=== PATIENT | male | born 1940 | race Caucasian/White ===

== ENCOUNTER 2017-03-03 13:31 | Inpatient (IN) | payer OTHER ==
[~2017-03-03] VITALS: Ht 167.6 cm; Wt 77.1 kg
[2017-03-03] VITALS (7 sets, daily range): BP systolic 100–131
[~2017-03-03 13:31] MED LIST: ATEN50TA PO; FOLI-43 PO; LISI-600 PO; PRAV40TA PO; TRIA1CAP53 PO
--- NOTE | 2017-03-03 14:15 | NUR ---
Pt was brought to bed 4 and report was endorsed by Natividad
--- NOTE | 2017-03-03 14:32 | NUR ---
Pt complains of weakness with low bp for the past 2 weeks, had a doctors appt today and it was 75/51 and the doctor told him to go home and call 911. ALS brought in the pt and his bp increased to 103/56 with a 500ml NS bag. Pt denies chest pain, has some difficulty while talking, some SOB but o2 sat is 95% on room air. No other injuries/complaints per pt or noted.
--- NOTE | 2017-03-03 14:36 | NUR ---
ER at bedside examining patient.
[2017-03-03 14:57] LABS: BASOPHILS # (AUTO) 0.1 K/uL (0.0-0.2); EOSINOPHILS # (AUTO) 0.1 K/uL (0.0-0.4); HEMATOCRIT 25.5 % (36-54); LYMPHOCYTES # (AUTO) 1.3 K/uL (1.0-5.5); MEAN CORPUSCULAR HEMOGLOBIN 33 pg (27-31)
--- NOTE | 2017-03-03 15:00 | NUR ---
Pt is resting in bed comfortably with no noted distress or discomfort.
[2017-03-03 15:01] LABS: BASOPHILS % (AUTO) 0.6 % (0.0-2.0); EOSINOPHILS % (AUTO) 0.5 % (0.0-4.0); HEMOGLOBIN 8.6 g/dL (14.0-18.0); LYMPHOCYTES % (AUTO) 11.6 % (20.5-51.5); MEAN CORPUSCULAR HGB CONC 34 % (32-36); MEAN CORPUSCULAR VOLUME 99 fL (79.0-98.0); MONOCYTES # (AUTO) 0.7 K/uL (0.0-1.0); MONOCYTES % (AUTO) 6.5 % (1.7-9.3); NEUTROPHILS # (AUTO) 8.9 K/uL (1.8-7.7); NEUTROPHILS % (AUTO) 80.8 % (40.0-70.0); PLATELET COUNT (AUTO) 241 K/uL (130-430); RED BLOOD CELL COUNT(AUTO) 2.58 MIL/uL (4.2-6.2); RED CELL DISTRIBUTION WIDTH 15.6 % (9.0-15.0); WHITE BLOOD COUNT (AUTO) 11.1 K/uL (4.8-10.8)
[2017-03-03 15:12] LABS: ANION GAP 8 (5-15); CALCIUM 8.4 mg/dL (8.4-11.0); CHLORIDE 104 mmol/L (98-107); CREATININE 2.33 mg/dL (0.55-1.30); GLUCOSE 148 mg/dL (70-99); POTASSIUM 3.8 mmol/L (3.5-5.1); SODIUM SERUM 138 mmol/L (136-145); UREA NITROGEN, BLOOD 55 mg/dL (8-21)
[2017-03-03 15:20] LABS: ALANINE AMINOTRANSFERASE 17 U/L (12-78); ALBUMIN 2.8 g/dL (3.4-4.8); ASPARTATE AMINOTRANSFERASE 13 U/L (10-37); TOTAL BILIRUBIN 0.2 mg/dL (0.0-1.0); TOTAL PROTEIN, SERUM 6.2 g/dL (6.4-8.3)
[2017-03-03] MEDS ORDERED: NACL 0.9% 1,000 ML IV SCH (15:32)
--- NOTE | 2017-03-03 15:45 | NUR ---
Pt was taken to x ray in stable condition
--- NOTE | 2017-03-03 15:51 | NUR ---
Pt returned from CT in stable condition
--- NOTE | 2017-03-03 16:45 | NUR ---
ER at bedside examining patient.
[2017-03-03 16:48] LABS: BILIRUBIN,URINE NEGATIVE (NEGATIVE); BLOOD, URINE NEGATIVE (NEGATIVE); CLARITY/URINE CLEAR (CLEAR); COLOR,URINE YELLOW (YELLOW); GLUCOSE,URINE NEGATIVE (NEGATIVE); KETONES,URINE NEGATIVE (NEGATIVE); LEUKOCYTE ESTERASE ,URINE NEGATIVE (NEGATIVE); NITRITE, URINE NEGATIVE (NEGATIVE); PROTEIN URINE NEGATIVE (NEGATIVE); UROBILINOGEN,URINE 0.2 (0.2-1.0)
[2017-03-03] MEDS ORDERED: NACL 0.9% 1,000 ML IV ONE (17:15)
--- NOTE | 2017-03-03 17:15 | NUR ---
Telemetry strip printed, interpreted as SINUS RHYTHM at 70 bpm, and placed on the chart.
[2017-03-03 17:16] LABS: BACTERIA,URINE FEW /HPF (None Seen); MUCUS,URINE 1+ /LPF (None Seen); RBC,URINE 0-3 /HPF (0-3); WBC,URINE 0-3 /HPF (0-3)
--- NOTE | 2017-03-03 17:48 | NUR ---
Patient will be admitted to care of Dr Matute. Admitted to ICU unit. Will go to bed 2. Belongings list completed. Summary report printed. Report will be given at bedside.
--- NOTE | 2017-03-03 17:56 | NUR ---
Admission assessment Received Pt in ICU bed 2 via gurney. Pt awake, alert, orientated x4. Pt breathing even and unlabored. O2 sat @ 95 % room air. Pt c/o nausea and loose bloody stool when Pt was in ER. No s/s of active bleeding noted. Lung sounds auscultated, lungs sounds clear throughout all lobes. Abd ausculated, bowel sounds noted throughout all quadrant. Abd soft and non distended. IV access noted left FA 18G, patent with blood return. NS bolus currently infusing. Assessment done, plan of care discussed with Pt, call light within easy reach, bed at lowest position, will continue to monitor.
[2017-03-03] MEDS ORDERED: ACETAMINOPHEN 325 MG TABLET PO PRN (19:45)
--- NOTE | 2017-03-03 19:47 | NUR ---
Closing noted. Pt awake. Pt breathing even and unlabored. Pt stated he does not need anything at the moment. Informed Pt to push the call light if Pt needs assistance with anything. Pt verbalized understanding, Call light within easy reach, bed at lowest position, all care endorse to oncoming RN.
--- NOTE | 2017-03-03 20:00 | NUR ---
AAOX4. IN NO APPARENT DISTRESS. VSS. DENIES PAIN. PERRLA. HAND REINFORCING STEEL WORKER GOOD. BREATH SOUNDS CLEAR. ON ROOM AIR. POX 99%. BOWEL SOUNDS +. PULSES PALPABLE. SKIN W/D. COLOR SATISFACTORY. HOB UP TO COMFORT. SIDE RAILS UP X2. CALL LIGHTS WITHIN REACH. DR ESTRELLA CAME IN TO SEE PT EARLIER. NEW ORDERS GIVEN AND CARRIED OUT. DR ESTRELLA TALKED TO DR MCFADDEN. DR MCFADDEN WITH NEW ORDERS, IMPLEMENTED. CONSENT SIGNED FOR BLOOD TRANSFUSION AND ESOPHAGOGASTRODUODENOSCOPY.
[2017-03-03] MEDS: D5NS 1,000 ML IV SCH (20:07)
[2017-03-03] MEDS: PANTOPRAZOLE SODIUM 40 MG/VIAL (PROTONIX) IVP SCH (20:17)
--- NOTE | 2017-03-03 21:00 | NUR ---
STOOD UP TO VOID 300CC CLEAR MANOJ URINE VIA URINAL.
--- NOTE | 2017-03-03 21:20 | NUR ---
1 UNIT [facility] #[id number] [place]OGERS. NO ADVERSE REACTIONS.
[2017-03-03] MEDS: ZOLPIDEM TARTRATE 5 MG TABLET PO PRN (21:39)
--- NOTE | 2017-03-03 21:40 | NUR ---
AMBIEN 5 MG PO GIVEN FOR SLEEP PER PT REQUEST.
--- NOTE | 2017-03-03 23:00 | NUR ---
ORDERED CBC POSTPONED BECAUSE BLOOD IS STILL INFUSING.
--- NOTE | 2017-03-03 23:30 | NUR ---
PRBC ALL INFUSED.
[2017-03-04] VITALS (24 sets, daily range): BP systolic 89–150
--- NOTE | 2017-03-04 | NUR ---
DOZES ON AND OFF. 0 DISTRESS. NO SOB. TURNS SELF WELL. LOOKS COMFORTABLE.
--- NOTE | 2017-03-04 00:30 | NUR ---
CBC DRAWN PER ORDER.
[2017-03-04 00:33] LABS: BASOPHILS % (AUTO) 0.4 % (0.0-2.0); EOSINOPHILS # (AUTO) 0.2 K/uL (0.0-0.4); EOSINOPHILS % (AUTO) 2.5 % (0.0-4.0); HEMATOCRIT 28.1 % (36-54); HEMOGLOBIN 9.6 g/dL (14.0-18.0); LYMPHOCYTES # (AUTO) 2.1 K/uL (1.0-5.5); LYMPHOCYTES % (AUTO) 23.3 % (20.5-51.5); MEAN CORPUSCULAR HEMOGLOBIN 33 pg (27-31); MEAN CORPUSCULAR HGB CONC 34 % (32-36); MEAN CORPUSCULAR VOLUME 95 fL (79.0-98.0); MONOCYTES # (AUTO) 0.6 K/uL (0.0-1.0); MONOCYTES % (AUTO) 6.5 % (1.7-9.3); NEUTROPHILS # (AUTO) 6.1 K/uL (1.8-7.7); NEUTROPHILS % (AUTO) 67.3 % (40.0-70.0); PLATELET COUNT (AUTO) 220 K/uL (130-430); RED BLOOD CELL COUNT(AUTO) 2.95 MIL/uL (4.2-6.2); RED CELL DISTRIBUTION WIDTH 15.7 % (9.0-15.0)
--- NOTE | 2017-03-04 01:00 | NUR ---
SINUS DINA AT TIMES, ASYMPTOMATIC.
--- NOTE | 2017-03-04 02:00 | NUR ---
SOUNDLY ASLEEP. NO DISTRESS NOTED.
--- NOTE | 2017-03-04 04:00 | NUR ---
SLEPT FOR LONG PERIODS OF TIME. STATES HE FEELS MUCH BETTER THAN HOW HE FELT YESTERDAY. VOIDED 400CC CLEAR MANOJ URINE VIA URINAL.
--- NOTE | 2017-03-04 05:00 | NUR ---
NASAL SWAB FOR MRSA SENT TO LAB.
--- NOTE | 2017-03-04 06:00 | NUR ---
SLEPT INTERMITTENTLY. NO DISTRESS, SOB, PAIN NOTED. REPOSITIONS SELF WELL. NO COMPLAINTS OFFERED AT THIS TIME. SINUS DINA AT TIMES. REMAINS IN GUARDED BUT STABLE CONDITION. RESTFUL AND UNEVENTFUL NOC.
[2017-03-04 07:01] LABS: ALANINE AMINOTRANSFERASE 16 U/L (12-78); ALBUMIN 2.7 g/dL (3.4-4.8); ANION GAP 3 (5-15); ASPARTATE AMINOTRANSFERASE 14 U/L (10-37); CHLORIDE 110 mmol/L (98-107); GLUCOSE 108 mg/dL (70-99); POTASSIUM 4.3 mmol/L (3.5-5.1); SODIUM SERUM 140 mmol/L (136-145); TOTAL BILIRUBIN 0.4 mg/dL (0.0-1.0); UREA NITROGEN, BLOOD 40 mg/dL (8-21)
[2017-03-04 07:07] LABS: BASOPHILS % (AUTO) 0.4 % (0.0-2.0); EOSINOPHILS # (AUTO) 0.2 K/uL (0.0-0.4); EOSINOPHILS % (AUTO) 2.9 % (0.0-4.0); HEMATOCRIT 28.6 % (36-54); HEMOGLOBIN 9.7 g/dL (14.0-18.0); LYMPHOCYTES # (AUTO) 1.5 K/uL (1.0-5.5); LYMPHOCYTES % (AUTO) 20.2 % (20.5-51.5); MEAN CORPUSCULAR HEMOGLOBIN 33 pg (27-31); MEAN CORPUSCULAR HGB CONC 34 % (32-36); MEAN CORPUSCULAR VOLUME 97 fL (79.0-98.0); MONOCYTES # (AUTO) 0.5 K/uL (0.0-1.0); MONOCYTES % (AUTO) 6.8 % (1.7-9.3); NEUTROPHILS # (AUTO) 5.1 K/uL (1.8-7.7); NEUTROPHILS % (AUTO) 69.7 % (40.0-70.0); PLATELET COUNT (AUTO) 222 K/uL (130-430); RED BLOOD CELL COUNT(AUTO) 2.95 MIL/uL (4.2-6.2); RED CELL DISTRIBUTION WIDTH 15.7 % (9.0-15.0); WHITE BLOOD COUNT (AUTO) 7.3 K/uL (4.8-10.8)
--- NOTE | 2017-03-04 07:35 | NUR ---
AM Shift Assessment Pt AAOx4, states no distress at this time, able to verbalize needs. Respirations even and unlabored on RA. Skin warm and dry. IV 18G LFA intact, patent with D5 NS 100 ml/hr. Pt states no pain currently 0/10. Heart sounds regular, sinus bradycardia on monitor, asymptomatic, HR 55. Lung sounds clear bilaterally. Bowel sounds present, abdomen soft and nontender. Pt states he has not had BM since last night. Pt voids via urinal. SCDs in place bilaterally. Bed in lowest position. Call light in reach. Will continue to monitor.
--- NOTE | 2017-03-04 09:00 | NUR ---
Dr. Matute in to see pt.
--- NOTE | 2017-03-04 10:00 | NUR ---
Dr. Jeff called unit regarding pt and states, "I will see him later today. Keep pt NPO for now."
[2017-03-04] MEDS: PANTOPRAZOLE SODIUM 40 MG/VIAL (PROTONIX) IVP SCH ×2 (10:01→20:52)
[2017-03-04] MEDS: D5NS 1,000 ML IV SCH ×2 (10:05→20:46)
[2017-03-04 10:41] LABS: INR 0.9 (0.80-1.20); PROTHROMBIN TIME 9.9 SECS (9.5-12.5)
--- NOTE | 2017-03-04 15:40 | NUR ---
Patient Round/Hygiene/GI Pt states no pain 0/10, no distress at this time. Administered CHG bath with minimal assist. Dr. Longoria called unit and states he "will continue with EGD procedure." GI lab Karissa EDEN and rich eSals at bedside with patient. Consent signed for procedure and placed in chart.
--- NOTE | 2017-03-04 15:58 | NUR ---
Dr. Longoria at bedside with pt. Addendum: 03/04/17 at 1613 by Ghislaine Schmidt RN EGD procedure done at bedside by Dr. Jeff.
[2017-03-04] MEDS: fentaNYL CITRATE/PF 100 MCG/2 ML AMP ONE ×2 (16:07→16:09)
[2017-03-04] MEDS: MIDAZOLAM HCL 5 MG/5 ML VIAL ONE ×3 (16:07→16:11)
--- NOTE | 2017-03-04 19:30 | NUR ---
PM SHIFT ASSESSMENT Received report from AM shift RN. Pt is awake in bed watching TV, Alert and oriented x4. Respirations even and unlabored, no acute distress noted at this time. Lung sounds clear bilaterally. IV in left forearm patent and intact. Bowel sounds present. Pt voids with using urinal. SCD in place. Bed in lowest position, call light within reach, and safety precautions observed. Will continue to monitor Pt.
[2017-03-05] VITALS (17 sets, daily range): BP systolic 90–153
--- NOTE | 2017-03-05 | NUR ---
NOTE Pt is sleeping soundly, no acute distress noted at this time. Will continue to monitor.
--- NOTE | 2017-03-05 | NUR ---
NOTE Pt is sleeping soundly, no acute distress at this time. Heart rate at 60 to 70.
--- NOTE | 2017-03-05 03:00 | NUR ---
NOTE Assisted Pt to use the urinal. Has 200ml clear yellow urine.
--- NOTE | 2017-03-05 05:50 | NUR ---
BOWEL MOVEMENT Pt had a green formed stool. No blood noted. Will continue to monitor.
[2017-03-05] MEDS: D5NS 1,000 ML IV SCH (06:05)
--- NOTE | 2017-03-05 07:21 | NUR ---
TRANSFER OF CARE Gave report to AM shift RN via SBAR.
--- NOTE | 2017-03-05 07:30 | NUR ---
AM Assessment Pt AAOx4, able to verbalize needs. Pt states no pain or distress at this time. Skin warm and dry. IV 18G LFA intact, patent with D5 NS 100 ml/hr, no infiltration noted. Heart sounds regular, sinus bradycardia on monitor, HR 55 asymptomatic. Lung sounds clear bilaterally. Bowel sounds present, abdomen soft and nontender. Bed in lowest position. SCDs in place. Will continue to monitor.
--- NOTE | 2017-03-05 07:42 | NUR ---
Nutrition Update Papito Scale 18 noted. Pt admitted for Gastrointestinal bleed. Diet: Full liquid diet. BMI: 27.4 kg/m2 RD to follow per nutrition care standards.
--- NOTE | 2017-03-05 09:00 | NUR ---
Dr. Matute at bedside with patient.
[2017-03-05] MEDS: PANTOPRAZOLE SODIUM 40 MG/VIAL (PROTONIX) IVP SCH ×2 (09:32→20:23)
--- NOTE | 2017-03-05 09:40 | NUR ---
Dr. Jeff at bedside with patient.
[2017-03-05 09:46] LABS: ANION GAP 5 (5-15); CALCIUM 7.9 mg/dL (8.4-11.0); CHLORIDE 110 mmol/L (98-107); CREATININE 1.23 mg/dL (0.55-1.30); GLUCOSE 180 mg/dL (70-99); SODIUM SERUM 140 mmol/L (136-145); UREA NITROGEN, BLOOD 19 mg/dL (8-21)
[2017-03-05 09:47] LABS: BASOPHILS % (AUTO) 0.2 % (0.0-2.0); EOSINOPHILS # (AUTO) 0.3 K/uL (0.0-0.4); EOSINOPHILS % (AUTO) 3.7 % (0.0-4.0); HEMATOCRIT 29.9 % (36-54); HEMOGLOBIN 9.8 g/dL (14.0-18.0); LYMPHOCYTES # (AUTO) 1.2 K/uL (1.0-5.5); LYMPHOCYTES % (AUTO) 16.4 % (20.5-51.5); MEAN CORPUSCULAR HEMOGLOBIN 32 pg (27-31); MEAN CORPUSCULAR HGB CONC 33 % (32-36); MEAN CORPUSCULAR VOLUME 98 fL (79.0-98.0); MONOCYTES # (AUTO) 0.3 K/uL (0.0-1.0); MONOCYTES % (AUTO) 3.9 % (1.7-9.3); NEUTROPHILS # (AUTO) 5.2 K/uL (1.8-7.7); NEUTROPHILS % (AUTO) 75.8 % (40.0-70.0); PLATELET COUNT (AUTO) 250 K/uL (130-430); RED BLOOD CELL COUNT(AUTO) 3.06 MIL/uL (4.2-6.2); RED CELL DISTRIBUTION WIDTH 15.2 % (9.0-15.0)
[2017-03-05 09:51] LABS: ALANINE AMINOTRANSFERASE 15 U/L (12-78); ALBUMIN 2.4 g/dL (3.4-4.8); ASPARTATE AMINOTRANSFERASE 14 U/L (10-37); TOTAL BILIRUBIN 0.2 mg/dL (0.0-1.0); TOTAL PROTEIN, SERUM 5.7 g/dL (6.4-8.3)
--- NOTE | 2017-03-05 12:00 | NUR ---
Patient Round/Hygiene Pt states no acute distress or pain at this time. Pt able to perform self care with CHG wipes. Linens changed. Bed in lowest position. SCDs in place. Call light in reach. Will continue to monitor.
--- NOTE | 2017-03-05 14:20 | NUR ---
ASSUMPTION OF CARE PT TRANSFERRED TO TELEMETRY. FULL ASSESSMENT COMPLETED. VSS. PT ORIENTED TO UNIT, ROOM, BED, STAFF. RD OF CALL LIGHT NOTED.
--- NOTE | 2017-03-05 14:20 | NUR ---
Transfer to Telemetry Endorsed plan of care to Mehnaz EDEN via SBAR. Pt states no pain, no discomfort, no distress at this time. IV SL 18G on LFA intact, patent, no signs of infiltration noted. Pt transfer to room 133B in tele via wheelchair. Pt ambulates to bed and wheelchair with steady gait. Addendum: 03/05/17 at 1622 by Ghislaine Schmidt RN All belongings recorded and sent with patient.
--- NOTE | 2017-03-05 18:48 | NUR ---
CLOSING NOTE PT RESTING IN BED. ALL NEEDS MET. HOURLY ROUNDS OBSERVED THROUGHOUT SHIFT. WILL ENDORSE REPORT TO NOC SHIFT NURSE.
--- NOTE | 2017-03-05 20:00 | NUR ---
INITIAL NOTES: PT IS AWAKE,AND ORIENTED . VITALS ARE STABLE . NOT IN ANY ACUTE DISTRESS AT THIS TIME . ASSESSMENT DONE .BED IN LOW AND LOCK POSITION , CALL ADDISON IN REACH ; ENCOURAGED PT TO CALL FOR ANY ASSISTANCE , WILL CONTINUE TO MONITOR.
--- NOTE | 2017-03-05 20:22 | NUR ---
RN NOTES: PT IS ASKING FOR SLEEPING PILL , PT STATED I WILL TAKE IT NOW AND WILL SLEEP . WILL GIVE MEDICATION
[2017-03-05] MEDS: ZOLPIDEM TARTRATE 5 MG TABLET PO PRN (20:23)
--- NOTE | 2017-03-05 22:05 | NUR ---
RN ROUNDS: PT IS SLEEPING COMFORTABLY ; NOT IN ANY ACUTE DISTRESS; WILL CONTINUE TO MONITOR.
--- NOTE | 2017-03-06 00:30 | NUR ---
RN ROUNDS: PT APPEARS TO BE SLEEPING , NOT IN ANY ACUTE DISTRESS; WILL CONTINUE TO MONITOR.
[2017-03-06 00:32] VITALS: BP_SYST 99
--- NOTE | 2017-03-06 02:47 | NUR ---
RN ROUNDS: PT IS SLEEPING , NOT IN ANY ACUTE DISTRESS; WILL CONTINUE TO MONITOR.;
[2017-03-06 04:17] VITALS: BP_SYST 106
--- NOTE | 2017-03-06 04:18 | NUR ---
RN ROUNDS: PT APPEARS TO BE SLEEPING COMFORTABLY , NOT IN ANY ACUTE DISTRESS; WILL CONTINUE TO MONITOR.;
--- NOTE | 2017-03-06 06:38 | NUR ---
CLOSING NOTES: PT IS SLEEPING COMFORTABLY, NOT IN ANY ACUTE DISTRESS; EASILY AROUSABLE ;NO BM LAST NIGHT . WILL CONTINUE TO MONITOR AND WILL ENDORSE TO NEXT SHIFT NURSE .
--- NOTE | 2017-03-06 08:06 | NUR ---
AM ROUNDS: PATIENT AWAKE LYING ON THE BED,READY FOR BREAKFAST. REPORT GIVEN BY NIGHT NURSE KEENAN. NEEDS ATTENDED TO. STABLE.
[2017-03-06 08:29] VITALS: BP_SYST 126
[2017-03-06] MEDS: PANTOPRAZOLE SODIUM 40 MG/VIAL (PROTONIX) IVP SCH (08:32)
--- NOTE | 2017-03-06 08:59 | NUR ---
iv: iv leaking and re sited at right ac intact,due iv protonix given as ordered.
--- NOTE | 2017-03-06 10:59 | NUR ---
DC ORDER: PATIENT SEEN BY DR FISHER WITH ORDERS DC HOME F/U WITH DR AVILES AND PCP TO MONITOR HEMOGLOBIN.
[2017-03-06] MEDS ORDERED: PRO40 PO (11:04)
[2017-03-06 11:20] VITALS: BP_SYST 126
[2017-03-06 11:22] VITALS: BP_SYST 126
--- NOTE | 2017-03-06 12:33 | NUR ---
rounds: patient eating lunch. after meal,patient will call his ride and will inform rn to be dc.
--- NOTE | 2017-03-06 13:04 | NUR ---
DC NOTES: TRANSITIONAL CARE DOCUMENTS AND PRESCRIPTIONS GIVEN TO PATIENT,PATIENT VERBALIZED UNDERSTANDING OF INSTRUCTIONS. IV REMOVED,DRY GAUZE APPLIED,NO BLEEDING NOTED.ACCOMPANIED HOME BY HIS FRIEND IN STABLE CONDITION.
== END 2017-03-06 13:04 | disposition home or self-care (01) | DRG 377 ==
LOC: SED 13:31 → SIC 17:39 → STU 03-05 14:45
PROVIDERS: ADMIT Internal Medicine Hospice and Palliative Medicine; ATTEND Internal Medicine Hospice and Palliative Medicine
PROC: 30233N1 Transfusion of Nonautologous Red Blood Cells into Peripheral Vein, Percutaneous Approach (ICD-10-PCS; 2017-03-03)
PROC: 0DB68ZX Excision of Stomach, Via Natural or Artificial Opening Endoscopic, Diagnostic (ICD-10-PCS; principal; 2017-03-04 14:30)
DX: K25.4 Chronic or unspecified gastric ulcer with hemorrhage (principal); N17.0 Acute kidney failure with tubular necrosis; D62 Acute posthemorrhagic anemia; E78.5 Hyperlipidemia, unspecified; I25.10 Atherosclerotic heart disease of native coronary artery without angina pectoris; I11.0 Hypertensive heart disease with heart failure; I48.0 Paroxysmal atrial fibrillation; I50.9 Heart failure, unspecified; K26.9 Duodenal ulcer, unspecified as acute or chronic, without hemorrhage or perforation; M19.90 Unspecified osteoarthritis, unspecified site; I95.9 Hypotension, unspecified; I25.2 Old myocardial infarction; Z85.46 Personal history of malignant neoplasm of prostate; Z86.74 Personal history of sudden cardiac arrest; Z87.891 Personal history of nicotine dependence; Z95.1 Presence of aortocoronary bypass graft; Z88.6 Allergy status to analgesic agent
CPT/HCPCS: 36415; 43239; 71020-TC; 80053; 81000-TC; 84484; 85025; 85610-TC; 86886; 86900; 86901; 86920; 87081; 88305; 88312; 88313; 93005; 96360; 99291; C9113; J2250; J3010; J7030; J7042; J7050; P9021

== ENCOUNTER 2017-10-29 07:21 | Inpatient (IN) | payer OTHER ==
[~2017-10-29] VITALS: Ht 167.6 cm; Wt 77.1 kg
[2017-10-29] VITALS (14 sets, daily range): BP systolic 153–176
[~2017-10-29 07:21] MED LIST changes: -ATEN50TA PO; -FOLI-43 PO; -LISI-600 PO; -PRAV40TA PO; +PRO40 PO; -TRIA1CAP53 PO
[2017-10-29 08:17] LABS: BASOPHILS % (AUTO) 0.5 % (0.0-2.0); EOSINOPHILS % (AUTO) 0.5 % (0.0-4.0); HEMATOCRIT 33.6 % (36-54); HEMOGLOBIN 10.9 g/dL (14.0-18.0); LYMPHOCYTES # (AUTO) 0.3 K/uL (1.0-5.5); LYMPHOCYTES % (AUTO) 3.5 % (20.5-51.5); MEAN CORPUSCULAR HEMOGLOBIN 29 pg (27-31); MEAN CORPUSCULAR HGB CONC 33 % (32-36); MEAN CORPUSCULAR VOLUME 90 fL (79.0-98.0); MONOCYTES # (AUTO) 0.5 K/uL (0.0-1.0); MONOCYTES % (AUTO) 5.4 % (1.7-9.3); NEUTROPHILS # (AUTO) 8.1 K/uL (1.8-7.7); NEUTROPHILS % (AUTO) 90.1 % (40.0-70.0); PLATELET COUNT (AUTO) 244 K/uL (130-430); RED BLOOD CELL COUNT(AUTO) 3.73 MIL/uL (4.2-6.2); RED CELL DISTRIBUTION WIDTH 19.6 % (9.0-15.0); WHITE BLOOD COUNT (AUTO) 8.9 K/uL (4.8-10.8)
[2017-10-29 08:33] LABS: INR 0.9 (0.80-1.20); PROTHROMBIN TIME 9.5 SECS (9.5-12.5)
[2017-10-29 08:35] LABS: ALCOHOL, BLOOD 29 mg/dL (<10)
[2017-10-29 08:49] LABS: CHLORIDE 102 mmol/L (98-107); POTASSIUM 3.9 mmol/L (3.5-5.1); SODIUM SERUM 139 mmol/L (136-145)
[2017-10-29 08:50] LABS: ANION GAP 13 (5-15); CALCIUM 8.9 mg/dL (8.4-11.0); GLUCOSE 90 mg/dL (70-99); UREA NITROGEN, BLOOD 14 mg/dL (8-21)
[2017-10-29 08:56] LABS: CREATININE 0.77 mg/dL (0.55-1.30)
[2017-10-29 08:57] LABS: ALANINE AMINOTRANSFERASE 29 U/L (12-78); ALBUMIN 3.5 g/dL (3.4-4.8)
[2017-10-29 09:09] LABS: ASPARTATE AMINOTRANSFERASE 33 U/L (10-37)
[2017-10-29 09:12] LABS: FREE T4 (FREE THYROXINE) 0.2 ng/dl (0.8-1.5); TOTAL BILIRUBIN 0.7 mg/dL (0.0-1.0)
[2017-10-29 09:13] LABS: BILIRUBIN,URINE NEGATIVE (NEGATIVE); CLARITY/URINE CLEAR (CLEAR); COLOR,URINE YELLOW (YELLOW); GLUCOSE,URINE NEGATIVE (NEGATIVE); KETONES,URINE 2+ (NEGATIVE); LEUKOCYTE ESTERASE ,URINE NEGATIVE (NEGATIVE); NITRITE, URINE NEGATIVE (NEGATIVE); PROTEIN URINE TRACE (NEGATIVE); UROBILINOGEN,URINE 0.2 (0.2-1.0)
[2017-10-29 09:14] LABS: BLOOD, URINE TRACE (NEGATIVE)
[2017-10-29 09:32] LABS: BARBITURATE, URINE NEGATIVE (NEG <=200); BENZODIAZEPINE, URINE NEGATIVE (NEG <=150); CANNABINOID, URINE NEGATIVE (NEG <=50); COCAINE, URINE NEGATIVE (NEG <=150); METHAMPHETAMINES SCREEN,URINE NEGATIVE (NEG <=500); OPIATE, URINE NEGATIVE (NEG <=100); PHENCYCLIDINE SCREEN,URINE NEGATIVE (NEG <=25); UR TRICYCLIC ANTIDEPRESSANTS NEGATIVE (NEG <=300); URINE AMPHETAMINE NEGATIVE (NEG <=500); URINE METHADONE NEGATIVE (NEG <=200); URINE OXYCODONE SCREEN NEGATIVE (NEG <=100); URINE PROPOXYPHENE SCREEN NEGATIVE (NEG <=300)
[2017-10-29 09:50] LABS: BACTERIA,URINE RARE /HPF (None Seen); RBC,URINE NONE SEEN /HPF (0-3); WBC,URINE 0-3 /HPF (0-3)
[2017-10-29] MEDS ORDERED: PRO40 PO (10:49)
[2017-10-29] MEDS ORDERED: PRAV40TA PO (10:49)
[2017-10-29] MEDS ORDERED: HYDR-1115 PO (10:49)
[2017-10-29] MEDS ORDERED: TRIA1CAP53 PO (10:49)
[2017-10-29] MEDS ORDERED: METO25TA3 PO (10:49)
[2017-10-29] MEDS ORDERED: LEVE500T13 PO (10:49)
[2017-10-29] MEDS ORDERED: ONDANSETRON HCL 4 MG/2 ML VIAL IVP PRN (11:00)
[2017-10-29] MEDS ORDERED: METOCLOPRAMIDE HCL 10 MG/2 ML VIAL IVP PRN (11:00)
[2017-10-29] MEDS: NACL 0.9% 1,000 ML IV SCH (12:21)
[2017-10-29] MEDS: levETIRAcetam 500 MG in NS 100 ML IV SCH ×2 (13:08→20:29)
[2017-10-29] MEDS: BANANA BAG 1 EA, FOLIC ACID 1 MG, THIAMINE HCL 100 MG, MAGNESIUM SULFATE 1 GM, MVI 10 M... IV SCH ×5 (13:08)
[2017-10-29] MEDS: LORazepam 2 MG/ML VIAL IVP PRN (16:53)
[2017-10-29] MEDS ORDERED: METOPROLOL SUCCINATE 25 MG TAB.SR.24H (TOPROL XL) PO ONE (22:50)
[2017-10-29] MEDS: LABETALOL 100 MG/ 20ML VIAL IVP PRN (23:54)
[2017-10-30] VITALS (13 sets, daily range): BP systolic 127–163
[2017-10-30] MEDS: NACL 0.9% 1,000 ML IV SCH ×2 (03:14→21:10)
[2017-10-30] MEDS: hydrALAZINE HCL 25 MG TABLET PO SCH ×3 (08:15→21:09)
[2017-10-30] MEDS: levETIRAcetam 500 MG in NS 100 ML IV SCH ×2 (08:16→21:10)
[2017-10-30] MEDS: METOPROLOL SUCCINATE 25 MG TAB.SR.24H (TOPROL XL) PO SCH (08:16)
[2017-10-30] MEDS ORDERED: chlordiazePOXIDE HCL 25 MG CAPSULE PO ONE (10:00)
[2017-10-30] MEDS: BANANA BAG 1 EA, FOLIC ACID 1 MG, THIAMINE HCL 100 MG, MAGNESIUM SULFATE 1 GM, MVI 10 M... IV SCH ×5 (12:50)
[2017-10-30] MEDS: chlordiazePOXIDE HCL 25 MG CAPSULE PO SCH ×2 (15:40→21:08)
[2017-10-30] MEDS ORDERED: HYDROcodone/ACETAMIN 5-325 MG TAB (NORCO/ VICODIN) PO PRN (19:45)
[2017-10-31] VITALS: BP_SYST 129
[2017-10-31] MEDS: TEMAZEPAM 15 MG CAPSULE PO PRN ×2 (00:15→21:31)
[2017-10-31 00:58] VITALS: BP_SYST 153
[2017-10-31] MEDS: LORazepam 2 MG/ML VIAL IVP PRN (05:14)
[2017-10-31 08:00] VITALS: BP_SYST 164
[2017-10-31] MEDS: METOPROLOL SUCCINATE 25 MG TAB.SR.24H (TOPROL XL) PO SCH (09:00)
[2017-10-31] MEDS: hydrALAZINE HCL 25 MG TABLET PO SCH ×3 (09:00→21:30)
[2017-10-31] MEDS ORDERED: LORazepam 2 MG/ML VIAL IVP PRN (09:30)
[2017-10-31] MEDS: LABETALOL 100 MG/ 20ML VIAL IVP PRN (09:34)
[2017-10-31] MEDS: levETIRAcetam 500 MG in NS 100 ML IV SCH ×2 (09:35→21:30)
[2017-10-31] MEDS ORDERED: HALOPERIDOL LACTATE 5 MG/ML VIAL IVP PRN (10:45)
[2017-10-31 12:17] VITALS: BP_SYST 141
[2017-10-31] MEDS: BANANA BAG 1 EA, FOLIC ACID 1 MG, THIAMINE HCL 100 MG, MAGNESIUM SULFATE 1 GM, MVI 10 M... IV SCH ×5 (13:33)
[2017-10-31] MEDS: NACL 0.9% 1,000 ML IV SCH (13:34)
[2017-10-31 16:05] VITALS: BP_SYST 140
[2017-10-31] MEDS: D5/0.45 NS 1,000 ML IV SCH (16:15)
[2017-10-31 16:37] LABS: BASOPHILS % (AUTO) 0.2 % (0.0-2.0); EOSINOPHILS # (AUTO) 0.3 K/uL (0.0-0.4); EOSINOPHILS % (AUTO) 4.9 % (0.0-4.0); HEMATOCRIT 32.9 % (36-54); HEMOGLOBIN 10.8 g/dL (14.0-18.0); LYMPHOCYTES # (AUTO) 0.5 K/uL (1.0-5.5); LYMPHOCYTES % (AUTO) 9.6 % (20.5-51.5); MEAN CORPUSCULAR HEMOGLOBIN 30 pg (27-31); MEAN CORPUSCULAR HGB CONC 33 % (32-36); MEAN CORPUSCULAR VOLUME 91 fL (79.0-98.0); MONOCYTES # (AUTO) 0.6 K/uL (0.0-1.0); MONOCYTES % (AUTO) 10.7 % (1.7-9.3); NEUTROPHILS # (AUTO) 3.8 K/uL (1.8-7.7); NEUTROPHILS % (AUTO) 74.6 % (40.0-70.0); PLATELET COUNT (AUTO) 217 K/uL (130-430); RED BLOOD CELL COUNT(AUTO) 3.61 MIL/uL (4.2-6.2); RED CELL DISTRIBUTION WIDTH 19.6 % (9.0-15.0); WHITE BLOOD COUNT (AUTO) 5.3 K/uL (4.8-10.8)
[2017-10-31 16:41] LABS: ANION GAP 8 (5-15); CALCIUM 8.5 mg/dL (8.4-11.0); CHLORIDE 108 mmol/L (98-107); CREATININE 0.61 mg/dL (0.55-1.30); GLUCOSE 101 mg/dL (70-99); SODIUM SERUM 140 mmol/L (136-145); UREA NITROGEN, BLOOD 7 mg/dL (8-21)
[2017-10-31 20:22] VITALS: BP_SYST 137
[2017-11-01] MEDS: D5/0.45 NS 1,000 ML IV SCH (05:02)
[2017-11-01 07:25] LABS: BASOPHILS % (AUTO) 0.2 % (0.0-2.0); EOSINOPHILS # (AUTO) 0.3 K/uL (0.0-0.4); EOSINOPHILS % (AUTO) 5.1 % (0.0-4.0); HEMATOCRIT 30.8 % (36-54); HEMOGLOBIN 10.2 g/dL (14.0-18.0); LYMPHOCYTES # (AUTO) 0.5 K/uL (1.0-5.5); LYMPHOCYTES % (AUTO) 9.6 % (20.5-51.5); MEAN CORPUSCULAR HEMOGLOBIN 30 pg (27-31); MEAN CORPUSCULAR HGB CONC 33 % (32-36); MEAN CORPUSCULAR VOLUME 91 fL (79.0-98.0); MONOCYTES # (AUTO) 0.5 K/uL (0.0-1.0); MONOCYTES % (AUTO) 10.1 % (1.7-9.3); NEUTROPHILS # (AUTO) 3.8 K/uL (1.8-7.7); PLATELET COUNT (AUTO) 218 K/uL (130-430); RED BLOOD CELL COUNT(AUTO) 3.39 MIL/uL (4.2-6.2); WHITE BLOOD COUNT (AUTO) 5.1 K/uL (4.8-10.8)
[2017-11-01 07:40] LABS: ANION GAP 6 (5-15); CALCIUM 8.6 mg/dL (8.4-11.0); CHLORIDE 107 mmol/L (98-107); CREATININE 0.66 mg/dL (0.55-1.30); GLUCOSE 106 mg/dL (70-99); POTASSIUM 3.8 mmol/L (3.5-5.1); SODIUM SERUM 140 mmol/L (136-145); UREA NITROGEN, BLOOD 10 mg/dL (8-21)
[2017-11-01 08:00] VITALS: BP_SYST 139
[2017-11-01] MEDS: levETIRAcetam 500 MG in NS 100 ML IV SCH (09:12)
[2017-11-01] MEDS: METOPROLOL SUCCINATE 25 MG TAB.SR.24H (TOPROL XL) PO SCH (09:13)
[2017-11-01] MEDS: hydrALAZINE HCL 25 MG TABLET PO SCH ×2 (09:14→14:58)
[2017-11-01] MEDS: BANANA BAG 1 EA, FOLIC ACID 1 MG, THIAMINE HCL 100 MG, MAGNESIUM SULFATE 1 GM, MVI 10 M... IV SCH ×5 (12:43)
[2017-11-01 12:50] VITALS: BP_SYST 146
[2017-11-01 14:25] VITALS: BP_SYST 146
[2017-11-01 16:00] VITALS: BP_SYST 137
== END 2017-11-01 16:20 | DRG 85 ==
LOC: SED 07:21 → SIC 10:47 → STU 10-30 10:51
PROVIDERS: ADMIT Internal Medicine Hospice and Palliative Medicine; ATTEND Internal Medicine Hospice and Palliative Medicine
DX: S06.5X0A Traumatic subdural hemorrhage without loss of consciousness, initial encounter (principal); I21.A1 Myocardial infarction type 2; R56.9 Unspecified convulsions; F10.239 Alcohol dependence with withdrawal, unspecified; Z86.74 Personal history of sudden cardiac arrest; W18.39XA Other fall on same level, initial encounter; M19.90 Unspecified osteoarthritis, unspecified site; I25.10 Atherosclerotic heart disease of native coronary artery without angina pectoris; R29.6 Repeated falls; I10 Essential (primary) hypertension; S01.111A Laceration without foreign body of right eyelid and periocular area, initial encounter; E78.5 Hyperlipidemia, unspecified; K21.9 Gastro-esophageal reflux disease without esophagitis; Z85.46 Personal history of malignant neoplasm of prostate; Z79.899 Other long term (current) drug therapy; Y93.89 Activity, other specified; Y92.89 Other specified places as the place of occurrence of the external cause; Z95.1 Presence of aortocoronary bypass graft; Z88.6 Allergy status to analgesic agent; Z90.79 Acquired absence of other genital organ(s); I25.2 Old myocardial infarction; Z82.3 Family history of stroke; Z82.49 Family history of ischemic heart disease and other diseases of the circulatory system; Z71.41 Alcohol abuse counseling and surveillance of alcoholic; Z87.891 Personal history of nicotine dependence
CPT/HCPCS: 36415; 70450-TC; 71045; 73030; 74018; 80048; 80053; 80307; 81000-TC; 82140-TC; 83605; 83880; 84439; 84484; 85025; 85610-TC; 87040-TC; 87081; 93306; 95816; 97110-GP; 97116-GP; 97530-GP; 99285; G0482; J1630; J1953; J2060; J2765; J3411; J3475; J3490; J7030

== ENCOUNTER 2020-04-25 07:53 | Observation (INO) | payer OTHER ==
[~2020-04-25] VITALS: Ht 167.6 cm; Wt 76.7 kg
[~2020-04-25 07:53] MED LIST changes: +HYDR-4038 PO; +LEVE500T9 PO; +METO25TA3 PO; +PRAV40TA PO
[2020-04-25 07:59] VITALS: BP_SYST 193
[2020-04-25] MEDS ORDERED: NACL 0.9% 1,000 ML IV ONE (08:17)
[2020-04-25 08:47] LABS: BASOPHILS % (AUTO) 0.5 % (0.0-2.0); EOSINOPHILS # (AUTO) 0.1 K/uL (0.0-0.4); EOSINOPHILS % (AUTO) 1.7 % (0.0-4.0); HEMATOCRIT 41.6 % (36-54); HEMOGLOBIN 14.5 g/dL (14.0-18.0); LYMPHOCYTES # (AUTO) 0.9 K/uL (1.0-5.5); LYMPHOCYTES % (AUTO) 10.4 % (20.5-51.5); MEAN CORPUSCULAR HEMOGLOBIN 39 pg (27-31); MEAN CORPUSCULAR HGB CONC 35 % (32-36); MEAN CORPUSCULAR VOLUME 111 fL (79.0-98.0); MONOCYTES # (AUTO) 0.6 K/uL (0.0-1.0); MONOCYTES % (AUTO) 6.8 % (1.7-9.3); NEUTROPHILS # (AUTO) 6.8 K/uL (1.8-7.7); NEUTROPHILS % (AUTO) 80.6 % (40.0-70.0); PLATELET COUNT (AUTO) 168 K/uL (130-430); RED BLOOD CELL COUNT(AUTO) 3.76 MIL/uL (4.2-6.2); RED CELL DISTRIBUTION WIDTH 13.6 % (9.0-15.0); WHITE BLOOD COUNT (AUTO) 8.4 K/uL (4.8-10.8)
[2020-04-25 08:58] LABS: ANION GAP 8 (5-15); CALCIUM 8.5 mg/dL (8.4-11.0); CHLORIDE 108 mmol/L (98-107); CREATININE 0.76 mg/dL (0.55-1.30); GLUCOSE 107 mg/dL (70-99); SODIUM SERUM 142 mmol/L (136-145); UREA NITROGEN, BLOOD 9 mg/dL (8-21)
[2020-04-25 09:07] LABS: ALANINE AMINOTRANSFERASE 43 U/L (12-78); ALBUMIN 3.2 g/dL (3.4-4.8); ASPARTATE AMINOTRANSFERASE 44 U/L (10-37); LIPASE 88 U/L (73-393); TOTAL BILIRUBIN 0.6 mg/dL (0.0-1.0)
[2020-04-25] MEDS ORDERED: LISI40TA4 PO (09:07)
[2020-04-25] MEDS ORDERED: METO1TAB38 PO (09:07)
[2020-04-25] MEDS ORDERED: HYDR-4039 PO (09:07)
[2020-04-25] MEDS ORDERED: PRAV40TA63 PO (09:07)
[2020-04-25] MEDS ORDERED: ASPI-1155 PO (09:08)
[2020-04-25 09:11] LABS: ALCOHOL, BLOOD < 3 mg/dL (<10)
[2020-04-25] MEDS ORDERED: NITROGLYCERIN 0.4 MG TAB.SUBL SL ONE (10:45)
[2020-04-25] MEDS ORDERED: ASPIRIN 325 MG TABLET PO ONE (10:45)
[2020-04-25] MEDS ORDERED: PANTOPRAZOLE SODIUM 40 MG TAB PO SCH (12:15)
[2020-04-25] MEDS ORDERED: PRAVASTATIN SODIUM 20 MG TABLET (PRAVACHOL) PO SCH (12:15)
[2020-04-25] MEDS ORDERED: METOPROLOL SUCCINATE 25 MG TAB.SR.24H (TOPROL XL) PO ONE (13:00)
[2020-04-25] MEDS ORDERED: lisinopriL 20 MG TABLET PO ONE (13:00)
[2020-04-25] MEDS ORDERED: ATORVASTATIN 10 MG TABLET PO ONE (13:00)
[2020-04-25] MEDS ORDERED: PANTOPRAZOLE SODIUM 40 MG TAB PO ONE (13:00)
[2020-04-25 15:31] VITALS: BP_SYST 174
[2020-04-25 20:00] VITALS: BP_SYST 157
[2020-04-25] MEDS: levETIRAcetam 500 MG TABLET PO SCH (20:38)
[2020-04-25] MEDS: hydrALAZINE HCL 25 MG TABLET PO SCH (20:38)
[2020-04-25] MEDS: PANTOPRAZOLE SODIUM 40 MG TAB PO SCH (20:38)
[2020-04-26] VITALS: BP_SYST 151
[2020-04-26 08:00] VITALS: BP_SYST 155
[2020-04-26] MEDS ORDERED: lisinopriL 20 MG TABLET PO SCH (09:00)
[2020-04-26] MEDS ORDERED: METOPROLOL SUCCINATE 25 MG TAB.SR.24H (TOPROL XL) PO SCH (09:00)
[2020-04-26] MEDS ORDERED: ATORVASTATIN 10 MG TABLET PO SCH (09:00)
[2020-04-26] MEDS ORDERED: ASPIRIN 81 MG TAB.CHEW PO SCH (09:00)
[2020-04-26] MEDS: hydrALAZINE HCL 25 MG TABLET PO SCH (09:10)
[2020-04-26] MEDS: levETIRAcetam 500 MG TABLET PO SCH (09:11)
[2020-04-26] MEDS: PANTOPRAZOLE SODIUM 40 MG TAB PO SCH (09:13)
[2020-04-26 12:16] VITALS: BP_SYST 143
[2020-04-26 12:51] VITALS: BP_SYST 143
== END 2020-04-26 13:43 | disposition home or self-care (01) ==
LOC: SED 07:53 → STU 11:20
PROVIDERS: ADMIT Internal Medicine Hospice and Palliative Medicine; ATTEND Internal Medicine Hospice and Palliative Medicine
DX: R07.89 Other chest pain (principal); Z20.828 Contact with and (suspected) exposure to other viral communicable diseases; K80.20 Calculus of gallbladder without cholecystitis without obstruction; I10 Essential (primary) hypertension; E78.5 Hyperlipidemia, unspecified; I25.10 Atherosclerotic heart disease of native coronary artery without angina pectoris; I25.2 Old myocardial infarction; Z95.1 Presence of aortocoronary bypass graft; Z87.891 Personal history of nicotine dependence; Z86.74 Personal history of sudden cardiac arrest; Z79.899 Other long term (current) drug therapy; Z85.46 Personal history of malignant neoplasm of prostate; Z79.82 Long term (current) use of aspirin
CPT/HCPCS: 36415 ×2; 71045; 74176; 76700; 78226; 80053; 83690; 84484 ×2; 85025; 87426; 93306; 96360; 99285; A9537; G0378; G0482; 93005

== ENCOUNTER 2023-06-22 11:25 | Inpatient (IN) | payer OTHER ==
[~2023-06-22] VITALS: Ht 170.2 cm; Wt 70.3 kg
[~2023-06-22 11:25] MED LIST changes: +ASPI-1155 PO; +HYDR-4039 PO; +LISI40TA13 PO; +METO1TAB38 PO; +PRAV40TA63 PO
[2023-06-22 11:35] VITALS: BP_SYST 125; PULSE 58; RESP 18; TEMP 97.3; O2SAT 100
[2023-06-22] MEDS ORDERED: NACL 0.9% 1,000 ML IV ONE (11:45)
[2023-06-22 12:28] LABS: BASOPHILS % (AUTO) 0.6 % (0.0-2.0); EOSINOPHILS # (AUTO) 0.1 K/uL (0.0-0.4); EOSINOPHILS % (AUTO) 1.3 % (0.0-4.0); HEMATOCRIT 35.7 % (36-54); HEMOGLOBIN 12.2 g/dL (14.0-18.0); LYMPHOCYTES # (AUTO) 0.9 K/uL (1.0-5.5); LYMPHOCYTES % (AUTO) 14.9 % (20.5-51.5); MEAN CORPUSCULAR HEMOGLOBIN 36 pg (27-31); MEAN CORPUSCULAR HGB CONC 34 % (32-36); MEAN CORPUSCULAR VOLUME 105 fL (79.0-98.0); MONOCYTES # (AUTO) 0.4 K/uL (0.0-1.0); MONOCYTES % (AUTO) 6.3 % (1.7-9.3); NEUTROPHILS # (AUTO) 4.5 K/uL (1.8-7.7); NEUTROPHILS % (AUTO) 76.9 % (40.0-70.0); PLATELET COUNT (AUTO) 217 K/uL (130-430); RED BLOOD CELL COUNT(AUTO) 3.42 MIL/uL (4.2-6.2); WHITE BLOOD COUNT (AUTO) 5.8 K/uL (4.8-10.8)
[2023-06-22 12:43] LABS: PROTHROMBIN TIME 10.3 SECS (9.5-12.5)
[2023-06-22 12:55] LABS: ALANINE AMINOTRANSFERASE 19 U/L (12-78); ALBUMIN 3.1 g/dL (3.4-4.8); ANION GAP 10 (5-15); ASPARTATE AMINOTRANSFERASE 18 U/L (10-37); BILIRUBIN,DIRECT 0.2 mg/dL (0.0-0.3); CALCIUM 9.3 mg/dL (8.4-11.0); CARBON DIOXIDE 34 mmol/L (23-29); CHLORIDE 97 mmol/L (98-107); CREATININE 0.99 mg/dL (0.55-1.30); GLUCOSE 103 mg/dL (74-106); LIPASE 22 U/L (16-77); SODIUM SERUM 141 mmol/L (136-145); TOTAL PROTEIN, SERUM 6.2 g/dL (6.4-8.3); UREA NITROGEN, BLOOD 9 mg/dL (8-21)
[2023-06-22 12:56] LABS: POTASSIUM 2.6 mmol/L (3.5-5.1)
[2023-06-22] MEDS ORDERED: KCL 20 mEq in 100 mL (PREMIX) 100 ML IV ONE (13:00)
[2023-06-22] MEDS ORDERED: POTASSIUM CHLORIDE 20 MEQ TABLET.ER PO ONE (13:00)
[2023-06-22 13:40] LABS: BILIRUBIN,URINE NEGATIVE (NEGATIVE); BLOOD, URINE NEGATIVE (NEGATIVE); CLARITY/URINE CLEAR (CLEAR); COLOR,URINE YELLOW (YELLOW); GLUCOSE,URINE NEGATIVE (NEGATIVE); KETONES,URINE 2+ (NEGATIVE); LEUKOCYTE ESTERASE ,URINE NEGATIVE (NEGATIVE); NITRITE, URINE NEGATIVE (NEGATIVE); PROTEIN URINE NEGATIVE (NEGATIVE); UROBILINOGEN,URINE 0.2 (0.2-1.0)
[2023-06-22] MEDS: cloNIDine HCL 0.1 MG TABLET PO SCH (17:26)
[2023-06-22] MEDS ORDERED: hydrALAZINE HCL 25 MG TABLET PO SCH (18:00)
[2023-06-22 18:04] VITALS: BP_SYST 182; PULSE 71; RESP 16; TEMP 99.3; O2SAT 96
[2023-06-22] MEDS ORDERED: hydrALAZINE HCL 25 MG TABLET PO ONE (18:30)
[2023-06-22 20:00] VITALS: BP_SYST 125; PULSE 66; RESP 18; TEMP 98.9; O2SAT 98
[2023-06-22] MEDS ORDERED: METOPROLOL SUCCINATE 25 MG TAB.SR.24H (TOPROL XL) PO SCH (21:00)
[2023-06-22] MEDS ORDERED: PANTOPRAZOLE SODIUM 40 MG TAB PO SCH (21:00)
[2023-06-22] MEDS: levETIRAcetam 500 MG TABLET PO SCH (21:54)
[2023-06-23] MEDS: D5/0.45 NS 1,000 ML IV SCH ×3 (00:06→19:11)
[2023-06-23 00:36] VITALS: BP_SYST 138; PULSE 67; RESP 16; TEMP 97; O2SAT 98
[2023-06-23] MEDS: cloNIDine HCL 0.1 MG TABLET PO SCH ×4 (00:45→18:53)
[2023-06-23 08:15] LABS: ANION GAP 6 (5-15); CALCIUM 8.5 mg/dL (8.4-11.0); CARBON DIOXIDE 30 mmol/L (23-29); CHLORIDE 101 mmol/L (98-107); CREATININE 0.67 mg/dL (0.55-1.30); GLUCOSE 115 mg/dL (74-106); SODIUM SERUM 137 mmol/L (136-145); UREA NITROGEN, BLOOD 7 mg/dL (8-21)
[2023-06-23 08:17] LABS: POTASSIUM 2.5 mmol/L (3.5-5.1)
[2023-06-23] MEDS ORDERED: POTASSIUM CHLORIDE 40 MEQ in NS 250 ML IV ONE (08:45)
[2023-06-23] MEDS ORDERED: hydrALAZINE HCL 25 MG TABLET PO SCH (09:00)
[2023-06-23] MEDS ORDERED: PRAVASTATIN SODIUM 20 MG TABLET (PRAVACHOL) PO SCH (09:00)
[2023-06-23] MEDS ORDERED: METOPROLOL SUCCINATE 25 MG TAB.SR.24H (TOPROL XL) PO SCH (09:00)
[2023-06-23] MEDS ORDERED: lisinopriL 20 MG TABLET PO SCH (09:00)
[2023-06-23 09:06] VITALS: BP_SYST 144; RESP 16; TEMP 97.6; O2SAT 98
[2023-06-23] MEDS: ATORVASTATIN 10 MG TABLET PO SCH (09:14)
[2023-06-23] MEDS: ASPIRIN 81 MG TAB.CHEW PO SCH (09:14)
[2023-06-23] MEDS: levETIRAcetam 500 MG TABLET PO SCH ×2 (09:15→21:43)
[2023-06-23] MEDS: PANTOPRAZOLE SODIUM 40 MG TAB PO SCH (09:15)
[2023-06-23] MEDS ORDERED: FOLIC ACID 1 MG TABLET PO ONE (10:00)
[2023-06-23] MEDS ORDERED: THIAMINE HCL 100 MG TABLET PO ONE (10:00)
[2023-06-23 12:06] VITALS: BP_SYST 101; RESP 16; TEMP 97.3; O2SAT 98
[2023-06-23 16:06] VITALS: BP_SYST 138; PULSE 65; RESP 17; TEMP 97.2; O2SAT 97
[2023-06-23 18:46] VITALS: BP_SYST 162; PULSE 60; RESP 16; O2SAT 77
[2023-06-23 20:00] VITALS: BP_SYST 152; PULSE 62; RESP 18; TEMP 97.5; O2SAT 95
[2023-06-24 00:32] VITALS: BP_SYST 127; PULSE 54; RESP 16; TEMP 96.2; O2SAT 99
[2023-06-24] MEDS: cloNIDine HCL 0.1 MG TABLET PO SCH ×5 (00:52→23:35)
[2023-06-24] MEDS: D5/0.45 NS 1,000 ML IV SCH ×2 (05:00→15:23)
[2023-06-24] MEDS: THIAMINE HCL 100 MG TABLET PO SCH (09:25)
[2023-06-24] MEDS: levETIRAcetam 500 MG TABLET PO SCH ×2 (09:25→20:36)
[2023-06-24] MEDS: PANTOPRAZOLE SODIUM 40 MG TAB PO SCH (09:25)
[2023-06-24] MEDS: ASPIRIN 81 MG TAB.CHEW PO SCH (09:25)
[2023-06-24] MEDS: ATORVASTATIN 10 MG TABLET PO SCH (09:26)
[2023-06-24] MEDS: FOLIC ACID 1 MG TABLET PO SCH (09:26)
[2023-06-24 09:35] VITALS: BP_SYST 143; PULSE 54; RESP 18; TEMP 97.5; O2SAT 98
[2023-06-24 11:38] VITALS: BP_SYST 137; PULSE 55; RESP 18; TEMP 99.1; O2SAT 99
[2023-06-24 16:59] VITALS: BP_SYST 148; PULSE 61; RESP 17; TEMP 98.6; O2SAT 97
[2023-06-24 20:00] VITALS: BP_SYST 128; PULSE 56; RESP 12; TEMP 98.6; O2SAT 94
[2023-06-24 21:17] LABS: ANION GAP 6 (5-15); CARBON DIOXIDE 31 mmol/L (23-29); CHLORIDE 102 mmol/L (98-107); CREATININE 0.86 mg/dL (0.55-1.30); GLUCOSE 117 mg/dL (74-106); SODIUM SERUM 139 mmol/L (136-145); UREA NITROGEN, BLOOD 9 mg/dL (8-21)
[2023-06-24 21:20] LABS: BASOPHILS % (AUTO) 0.8 % (0.0-2.0); EOSINOPHILS # (AUTO) 0.3 K/uL (0.0-0.4); EOSINOPHILS % (AUTO) 4.9 % (0.0-4.0); HEMATOCRIT 28.5 % (36-54); HEMOGLOBIN 9.7 g/dL (14.0-18.0); LYMPHOCYTES # (AUTO) 1.2 K/uL (1.0-5.5); LYMPHOCYTES % (AUTO) 19.6 % (20.5-51.5); MEAN CORPUSCULAR HEMOGLOBIN 36 pg (27-31); MEAN CORPUSCULAR HGB CONC 34 % (32-36); MEAN CORPUSCULAR VOLUME 106 fL (79.0-98.0); MONOCYTES # (AUTO) 0.4 K/uL (0.0-1.0); NEUTROPHILS % (AUTO) 67.7 % (40.0-70.0); PLATELET COUNT (AUTO) 172 K/uL (130-430); RED BLOOD CELL COUNT(AUTO) 2.69 MIL/uL (4.2-6.2); RED CELL DISTRIBUTION WIDTH 15.9 % (9.0-15.0)
[2023-06-24 21:22] LABS: ALANINE AMINOTRANSFERASE 11 U/L (12-78); ALBUMIN 2.1 g/dL (3.4-4.8); ASPARTATE AMINOTRANSFERASE 13 U/L (10-37); TOTAL BILIRUBIN 0.3 mg/dL (0.0-1.0); TOTAL PROTEIN, SERUM 4.7 g/dL (6.4-8.3)
[2023-06-24 21:43] LABS: POTASSIUM 2.8 mmol/L (3.5-5.1)
[2023-06-24] MEDS ORDERED: KCL 40 mEq in 100 mL (PREMIX) 100 ML IV ONE (22:00)
[2023-06-24] MEDS: traMADol HCL HCL 50 MG TABLET (ULTRAM) PO PRN (22:18)
[2023-06-24 23:46] LABS: ANISOCYTOSIS 1+
[2023-06-24 23:47] LABS: OVALOCYTES FEW; TEAR DROP CELLS FEW
[2023-06-25] MEDS: D5/0.45 NS 1,000 ML IV SCH (02:18)
[2023-06-25] MEDS: cloNIDine HCL 0.1 MG TABLET PO SCH ×3 (05:24→17:41)
[2023-06-25 08:00] VITALS: BP_SYST 174; PULSE 43; RESP 18; TEMP 97.7; O2SAT 96
[2023-06-25] MEDS: FOLIC ACID 1 MG TABLET PO SCH (08:58)
[2023-06-25] MEDS: PANTOPRAZOLE SODIUM 40 MG TAB PO SCH (08:58)
[2023-06-25] MEDS: ASPIRIN 81 MG TAB.CHEW PO SCH (08:58)
[2023-06-25] MEDS: levETIRAcetam 500 MG TABLET PO SCH (08:58)
[2023-06-25] MEDS: ATORVASTATIN 10 MG TABLET PO SCH (08:58)
[2023-06-25] MEDS: THIAMINE HCL 100 MG TABLET PO SCH (08:58)
[2023-06-25 09:56] LABS: ANION GAP 6 (5-15); CALCIUM 8.4 mg/dL (8.4-11.0); CARBON DIOXIDE 30 mmol/L (23-29); CHLORIDE 104 mmol/L (98-107); CREATININE 0.73 mg/dL (0.55-1.30); GLUCOSE 124 mg/dL (74-106); POTASSIUM 3.7 mmol/L (3.5-5.1); SODIUM SERUM 140 mmol/L (136-145); UREA NITROGEN, BLOOD 8 mg/dL (8-21)
[2023-06-25 12:00] VITALS: BP_SYST 167; PULSE 50; RESP 17; TEMP 98; O2SAT 97
[2023-06-25 14:55] VITALS: BP_SYST 175; PULSE 60; RESP 22; TEMP 97.5; O2SAT 97
[2023-06-25] MEDS: traMADol HCL HCL 50 MG TABLET (ULTRAM) PO PRN (15:34)
[2023-06-25 16:00] VITALS: BP_SYST 162; PULSE 51; RESP 18; TEMP 97.8; O2SAT 97
[2023-06-25] MEDS ORDERED: LISI40TA13 PO (17:53)
[2023-06-25] MEDS ORDERED: CLON0.1T PO (17:54)
[2023-06-25] MEDS ORDERED: FOLI-43 PO (17:54)
[2023-06-25] MEDS ORDERED: THIA50TA10 PO (17:55)
[2023-06-26] MEDS ORDERED: LORA-259 PO (09:51)
[2023-06-26] MEDS ORDERED: CLON0.1T PO (09:51)
[2023-06-26] MEDS ORDERED: HAL2 PO (09:51)
== END 2023-06-25 18:34 | DRG 641 ==
LOC: SED 11:25 → SMU 12:55 → STU 06-23 09:16
PROVIDERS: ADMIT Specialist; ATTEND Specialist
DX: E87.6 Hypokalemia (principal); E44.1 Mild protein-calorie malnutrition; R00.1 Bradycardia, unspecified; E78.5 Hyperlipidemia, unspecified; I25.10 Atherosclerotic heart disease of native coronary artery without angina pectoris; G40.909 Epilepsy, unspecified, not intractable, without status epilepticus; G30.9 Alzheimer's disease, unspecified; K80.20 Calculus of gallbladder without cholecystitis without obstruction; F02.80 Dementia in other diseases classified elsewhere, unspecified severity, without behavioral disturbance, psychotic disturbance, mood disturbance, and anxiety; I10 Essential (primary) hypertension; F10.10 Alcohol abuse, uncomplicated; Y90.9 Presence of alcohol in blood, level not specified; Z63.4 Disappearance and death of family member; Z79.82 Long term (current) use of aspirin; Z79.899 Other long term (current) drug therapy; Z86.73 Personal history of transient ischemic attack (TIA), and cerebral infarction without residual deficits; Z87.891 Personal history of nicotine dependence; Z95.1 Presence of aortocoronary bypass graft; Z88.8 Allergy status to other drugs, medicaments and biological substances; Z68.24 Body mass index [BMI] 24.0-24.9, adult
CPT/HCPCS: 36415; 70450-TC; 70551; 71045; 72125-TC; 76376; 80048; 80053; 80076; 81001; 81003; 83605; 83690; 83880; 84484; 85025; 85379; 85610-TC; 85730-TC; 87040; 87086; 93005; 93306; 93880; 96361; 96365; 96366; 97110-GP; 97116-GP; 97530-GP; 99285; G0378; J3480; J7050

== ENCOUNTER 2023-06-25 19:37 | Emergency (ER) | payer OTHER ==
[~2023-06-25] VITALS: Ht 170.2 cm; Wt 68.0 kg
[~2023-06-25 19:37] MED LIST changes: +CLON0.1T PO; +FOLI-43 PO; +THIA50TA10 PO
[2023-06-25 20:11] VITALS: BP_SYST 157; PULSE 68; RESP 20; TEMP 98; O2SAT 97
[2023-06-25] MEDS ORDERED: hydrALAZINE HCL 20 MG/ML VIAL IVP ONE (23:30)
[2023-06-25] MEDS ORDERED: HALOPERIDOL LACTATE 5 MG/ML VIAL IM ONE (23:30)
[2023-06-25 23:46] LABS: BASOPHILS # (AUTO) 0.1 K/uL (0.0-0.2); EOSINOPHILS # (AUTO) 0.3 K/uL (0.0-0.4); EOSINOPHILS % (AUTO) 4.5 % (0.0-4.0); HEMATOCRIT 33.1 % (36-54); HEMOGLOBIN 11.3 g/dL (14.0-18.0); LYMPHOCYTES # (AUTO) 1.4 K/uL (1.0-5.5); LYMPHOCYTES % (AUTO) 19.2 % (20.5-51.5); MEAN CORPUSCULAR HEMOGLOBIN 36 pg (27-31); MEAN CORPUSCULAR HGB CONC 34 % (32-36); MEAN CORPUSCULAR VOLUME 106 fL (79.0-98.0); MONOCYTES # (AUTO) 0.6 K/uL (0.0-1.0); MONOCYTES % (AUTO) 8.4 % (1.7-9.3); NEUTROPHILS # (AUTO) 4.8 K/uL (1.8-7.7); NEUTROPHILS % (AUTO) 66.9 % (40.0-70.0); PLATELET COUNT (AUTO) 187 K/uL (130-430); RED BLOOD CELL COUNT(AUTO) 3.14 MIL/uL (4.2-6.2); RED CELL DISTRIBUTION WIDTH 15.9 % (9.0-15.0); WHITE BLOOD COUNT (AUTO) 7.1 K/uL (4.8-10.8)
[2023-06-26 00:02] LABS: ANION GAP 8 (5-15); CALCIUM 8.8 mg/dL (8.4-11.0); CARBON DIOXIDE 29 mmol/L (23-29); CHLORIDE 101 mmol/L (98-107); CREATININE 0.76 mg/dL (0.55-1.30); GLUCOSE 102 mg/dL (74-106); POTASSIUM 3.6 mmol/L (3.5-5.1); SODIUM SERUM 138 mmol/L (136-145); UREA NITROGEN, BLOOD 9 mg/dL (8-21)
[2023-06-26] MEDS ORDERED: HALOPERIDOL LACTATE 5 MG/ML VIAL IM ONE ×2 (04:15→07:30)
[2023-06-26] MEDS ORDERED: LISINOPRIL 10 MG TABLET (PRINIVIL) PO ONE (06:00)
[2023-06-26] MEDS ORDERED: hydrALAZINE HCL 20 MG/ML VIAL IVP ONE (09:45)
[2023-06-26] MEDS ORDERED: LORA-259 PO (09:51)
[2023-06-26] MEDS ORDERED: CLON0.1T PO (09:51)
[2023-06-26] MEDS ORDERED: HAL2 PO (09:51)
[2023-06-26] MEDS ORDERED: cloNIDine HCL 0.2 MG TABLET PO ONE (10:00)
[2023-06-26 10:50] VITALS: BP_SYST 115; PULSE 61; RESP 17; TEMP 98.1; O2SAT 97
== END 2023-06-26 10:48 | disposition home or self-care (01) ==
LOC: SED 19:37
DX: F03.A11 Unspecified dementia, mild, with agitation (principal); I10 Essential (primary) hypertension; D50.9 Iron deficiency anemia, unspecified; Z88.5 Allergy status to narcotic agent; Z85.46 Personal history of malignant neoplasm of prostate; Z79.899 Other long term (current) drug therapy
CPT/HCPCS: 99291; 96374; 80048; 85025; 84484; 36415; 70450; 71045; 76376; 96372; J1630; J0360